=== PATIENT | male | born 1970 | race African-American/Black ===

== ENCOUNTER 2017-08-26 17:30 | Emergency (ER) | payer OTHER ==
[2017-08-26 17:53] VITALS: PULSE 88; TEMP 98.1; BMI 32.5
[2017-08-26] MEDS ORDERED: LABETALOL HCL 5 MG/1 ML (100MG/20 ML VIAL) IVPUSH ONE (18:48)
--- NOTE | 2017-08-26 18:48 | PDOC ---
History of Present Illness <Greg Van - Last Filed: 08/26/17 18:48> - General History Source: Patient Exam Limitations: No Limitations <Claudia Olivas - Last Filed: 08/26/17 18:56> - General Chief Complaint: Blood Pressure Problem Stated Complaint: HTN Time Seen by Provider: 08/26/17 17:35 - History of Present Illness Initial Comments: 08/26/17 18:55 Chief Complaint: High blood pressure Past Medical History: Patient has known diagnosis of hypertension but has been non-compliant with his medications up until three weeks ago when he was denied a dental procedure due to his blood pressure. Since then he went back to taking his prescribed medications and checking his blood pressure more regularly. Today , he reports taking his blood pressure at home and recorded it to be in the upper 200s which made him concerned and came in to be evaluated. Review of Systems: The patient denies any complaints related to elevated blood pressure such as headache, chest pain, palpitations, numbness/tingling in extremities. He denies cough or shortness of breath. He denies any fever, chills , nausea, vomiting, diarrhea, or urinary symptoms. Past Medical history: reports hypertension only Family History: Father has hx of hypertension and diabetes. Mother has history of hypertension as well. Sister has hx of anemia, denies sickle cell. 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 Denies drug, alcohol, or tobacco use. (Claudia Olivas) Past History - Past Medical History COPD: No HTN: Yes - Suicide/Smoking/Psychosocial Hx Smoking History: Never smoked Have you smoked in the past 12 months: No Information on smoking cessation initiated: No Hx Alcohol Use: No Drug/Substance Use Hx: No Substance Use Type: None <Greg Van - Last Filed: 08/26/17 18:48> <Claudia Olivas - Last Filed: 08/26/17 18:56> - Past Medical History Allergies/Adverse Reactions: Allergies Allergy/AdvReac Type Severity Reaction Status Date / Time No Known Allergies Allergy Verified 08/26/17 17:33 Home Medications: Ambulatory Orders Lisinopril 10 mg PO DAILY 08/26/17 Review of Systems - Review of Systems Able to Perform ROS?: Yes All Other Systems: Reviewed and Negative <Claudia Olivas - Last Filed: 08/26/17 18:56> - Vital Signs Last Vital Signs Temp Pulse Resp BP Pulse Ox 98.1 F 88 20 181/128 96 08/26/17 17:31 08/26/17 17:31 08/26/17 17:31 08/26/17 18:53 08/26/17 17:31 *DC/Admit/Observation/Transfer <Greg Van - Last Filed: 08/26/17 18:48> <Claudia Olivas - Last Filed: 08/26/17 18:56> - Attestations Scribe Attestion: 08/26/17 18:56 Documentation prepared by Claudia Olivas, acting as clinical specialist medical device for Gerg Wells MD. (Claudia Olivas)
[2017-08-26] MEDS ORDERED: LABETALOL HCL 100 MG TABLET (FP) PO ONE (18:49)
[2017-08-26] MEDS ORDERED: LABETALOL HCL 5 MG/1 ML (100MG/20 ML VIAL) ONE (19:04)
[2017-08-26] MEDS ORDERED: cloNIDine HCL 0.1 MG TABLET ONE (19:10)
--- NOTE | 2017-08-26 19:14 | PDOC ---
*Physical Exam - Vital Signs Last Vital Signs Temp Pulse Resp BP Pulse Ox 98.1 F 88 20 181/128 96 08/26/17 17:31 08/26/17 17:31 08/26/17 17:31 08/26/17 18:53 08/26/17 17:31 ED Treatment Course - Medications Given in the ED: ED Medications Discontinued Medications Generic Name Dose Route Start Last Admin Trade Name Luis Miguel PRN Reason Stop Dose Admin Labetalol HCl 20 mg 08/26/17 18:48 08/26/17 19:12 Normodyne Injection - IVPUSH 08/26/17 18:49 Not Given ONCE ONE Labetalol HCl 100 mg 08/26/17 18:49 08/26/17 19:12 Normodyne - PO 08/26/17 18:50 Not Given ONCE ONE Progress Note - Progress Note Progress Note: Care of this patient was transferred to me from Dr. Fernández at 1900 hrs. This is a 47-year-old male who was sent in from the urgent care center for hypertension. Patient is otherwise without complaints. Patient denies any headache chest pain or any neurological complaints. Patient said that he has had elevated blood pressure for many months and is taking 10 mg of lisinopril for it. Patient was given clonidine here in the emergency room and his repeat blood pressure was 164/124. Patient was told to double his dose of lisinopril. Assessment prescription for more lisinopril to the pharmacy. Patient understands that it will take a while to regulate his blood pressure into a normal range and he will call his doctor on Monday to make an appointment to discuss further increases in his lites percent of her POSSIBLY ADDING A SECOND MEDICATION. Patient discharged home *DC/Admit/Observation/Transfer Diagnosis at time of Disposition: Essential hypertension - Discharge Dispostion Disposition: HOME Admit: No - Referrals - Patient Instructions Printed Discharge Instructions: DI for High Blood Pressure, How to Monitor Your Blood Pressure at Home Additional Instructions: Increase your blood pressure medication lisinopril to 2 10 mg tablets a day or 20 mg a day. I sent a prescription to your pharmacy for another 30 tablets of the 20 mg. So when you get that prescription filled just take one tablet a day instead a 2 Call your doctor on Monday and make an appointment for as soon as possible to get your blood pressure regulated and into a more healthy range. It may take several weeks for your blood pressure to be regulated and normal. Return to the emergency department immediately with ANY new, persistent or worsening symptoms. Continue any medications as previously prescribed by your physician. You should follow up with your primary doctor as soon as possible regarding today's emergency department visit. . Please make sure your doctor reviews the results of your emergency evaluation. Thank you for coming to the Emergency Department today for your care. It was a pleasure to see you today. Please note that your evaluation is INCOMPLETE until you follow-up with your doctor. - Post Discharge Activity
[2017-08-26] MEDS ORDERED: cloNIDine HCL 0.1 MG TABLET PO ONE (19:15)
[2017-08-26 20:04] VITALS: BP 164/124
== END 2017-08-26 20:24 | disposition home or self-care (01) ==
LOC: FER 17:30
DX: I10 Essential (primary) hypertension (principal)
CPT/HCPCS: 99281-25